=== PATIENT | female | born 1970 | race Caucasian/White ===

== ENCOUNTER 2024-05-25 10:31 | Inpatient (IN) | payer MEDICAID ==
[2024-05-25] VITALS (8 sets, daily range): BP systolic 105–135; BP diastolic 71–95; PULSE 116–137; RESP 20; TEMP 97.9; O2SAT 93
[~2024-05-25] VITALS: Ht 160 cm; Wt 69.0 kg
[~2024-05-25 10:31] MED LIST: GRIS500T7 PO
[2024-05-25 10:55] LABS: BASOPHILS % (AUTO) 0.3 % (0-1); EOSINOPHILS # (AUTO) 0.1 X10'3 (0-0.9); HEMATOCRIT 35.2 % (35.0-45.0); HEMOGLOBIN 11.7 g/dl (12.0-16.0); LYMPHOCYTES # (AUTO) 2.2 X10'3 (1.1-4.8); LYMPHOCYTES % (AUTO) 31.2 % (21-51); MEAN CORPUSCULAR HEMOGLOBIN 28.3 PG (27.0-31.0); MEAN CORPUSCULAR HGB CONC 33.2 g/dL (33.0-36.5); MEAN CORPUSCULAR VOLUME 85.3 FL (78-98); MEAN PLATELET VOLUME 7.5 FL (7.4-10.4); MONOCYTES # (AUTO) 0.8 X10'3 (0-0.9); MONOCYTES % (AUTO) 10.9 % (2-12); NEUTROPHILS % (AUTO) 55.6 % (42-75); PLATELET COUNT 381 X10'3 (140-440); RED BLOOD COUNT 4.12 X10'6 (4.20-5.60); RED CELL DISTRIBUTION WIDTH 14.4 % (11.5-14.5); WHITE BLOOD COUNT 7.2 X10'3 (4.5-11.0)
[2024-05-25] MEDS: diltiazem 5mg/ml 5ml inj. IV ONE ×2 (10:56→11:08)
[2024-05-25] MEDS ORDERED: diltiazem-D5W 125mg/125ml 125 ML IV SCH ×2 (11:05→11:07)
[2024-05-25 11:08] LABS: ALANINE AMINOTRANSFERASE 37 U/L (12-78); ALBUMIN 3.1 G/DL (3.4-5.0); ALBUMIN/GLOBULIN RATIO 0.7 (1.1-1.5); ALKALINE PHOSPHATASE 172 IU/L (46-116); ANION GAP 10 (8-16); ASPARTATE AMINO TRANSFERASE 22 U/L (10-37); BILIRUBIN,TOTAL 0.8 MG/DL (0.1-1.0); BLOOD UREA NITROGEN 12 MG/DL (7-18); BUN/CREATININE RATIO 20.3 (10.0-20.0); CALCIUM 9.2 MG/DL (8.5-10.1); CHLORIDE 105 MMOL/L (99-107); CREATININE 0.59 MG/DL (0.40-0.90); GLUCOSE 113 MG/DL (70-104); POTASSIUM 3.8 MMOL/L (3.5-5.1); SODIUM 139 MMOL/L (135-145); TOTAL CARBON DIOXIDE 23.9 MMOL/L (24-32); TOTAL PROTEIN 7.3 G/DL (6.4-8.2); eCRCL 89 ML/MIN; eGFR > 90 ML/MIN
[2024-05-25 11:17] LABS: PRO BRAIN NATRIURETIC PEPTIDE 3047 PG/ML (0-125)
[2024-05-25] MEDS: diltiazem-NS 100mg/100ml 100 ML IV SCH (11:24)
[2024-05-25] MEDS: LORazepam 2 mg/ml vial IV ONE (11:34)
[2024-05-25] MEDS: aspirin 325mg tablet PO ONE (11:35)
[2024-05-25 11:39] LABS: URINE AMPHETAMINE SCREEN POSITIVE (Neg); URINE BARBITUATE SCREEN NEGATIVE (Neg); URINE BENZODIAZEPINES SCREEN NEGATIVE (Neg); URINE CANNABINOID SCREEN NEGATIVE (Neg); URINE COCAINE SCREEN NEGATIVE (Neg); URINE METHADONE SCREEN NEGATIVE (Neg); URINE OPIATE SCREEN NEGATIVE (Neg); URINE PHENCYCLIDINE SCREEN NEGATIVE (Neg)
[2024-05-25 11:55] LABS: BILIRUBIN,URINE NEGATIVE (Neg); CLARITY,URINE CLEAR (Clear); COLOR,URINE YELLOW (Yellow); GLUCOSE, URINE NEGATIVE (Neg); KETONES,URINE NEGATIVE (Neg); LEUKOCYTE ESTERASE ,URINE NEGATIVE (Neg); NITRITES, URINE NEGATIVE (Neg); OCCULT BLOOD,URINE NEGATIVE (Neg); PROTEIN,URINE NEGATIVE (Neg); UROBILINOGEN,URINE 0.2 E.U/dL (0.2-1.0)
[2024-05-25 12:04] LABS: UA COLLECTION TYPE CLN CATCH MIDSTREAM
[2024-05-25 12:05] LABS: BILIRUBIN,DIRECT 0.3 MG/DL (0-0.3); ETHANOL < 10 MG/DL (<10); LIPASE 28 U/L (16-77); MAGNESIUM 1.8 MG/DL (1.5-2.4)
[2024-05-25 12:25] LABS: APTT 27 SECONDS (22-32)
[2024-05-25] MEDS: amiodarone 150mg/dext, iso-os 100 ML IV ONE (12:38)
[2024-05-25] MEDS: amiodarone/D5 360MG/200ML BAG 200 ML IV SCH (12:50)
[2024-05-25] MEDS: enoxaparin 100mg/ml syringe SUBCUT ONE (12:57)
[2024-05-25] MEDS ORDERED: magnesium 2GM in 50ml NS 50 ML IV ONE (13:00)
[2024-05-25] MEDS: morphine 4 MG/ML inj SYRINge IV ONE (13:05)
[2024-05-25] MEDS ORDERED: metoprolol succinate 25mg (24-HOUR) SR. Tablet PO SCH (15:10)
[2024-05-25] MEDS: HYDROmorphone 1 mg/ml syringe IV ONE (15:23)
[2024-05-25] MEDS: metoprolol succinate 25mg (24-HOUR) SR. Tablet PO ONE (15:25)
[2024-05-25] MEDS: metoprolol tartrate 50mg tablet PO ONE (15:30)
[2024-05-25] MEDS: magnesium 2GM in 50ml NS 50 ML IV ONE (16:00)
[2024-05-25] MEDS: metoclopramide 5 mg/ml inj IV ONE (17:04)
[2024-05-25] MEDS: metoprolol tartrate 1mg/ml inj IV ONE ×2 (17:04)
[2024-05-25] MEDS ORDERED: magnesium Cl slow-release 64mg tablet PO PRN (17:30)
[2024-05-25] MEDS ORDERED: magnesium 2GM in 50ml NS 50 ML IV PRN (17:30)
[2024-05-25] MEDS ORDERED: magnesium 4gm in 100ml NS 100 ML IV PRN (17:30)
[2024-05-25] MEDS ORDERED: potassium Cl 20 mEq SR tablet PO PRN ×2 (17:30)
[2024-05-25] MEDS ORDERED: potassium Cl 40MEQ/1/2NS 520ml 520 ML IV PRN (17:30)
[2024-05-25] MEDS ORDERED: magnesium hydroxide 30ml (MOM) UD suspension PO PRN (17:30)
[2024-05-25] MEDS ORDERED: mag hydrox/Alum hydrox/simeth 30ml oral suspension PO PRN (17:30)
[2024-05-25] MEDS ORDERED: ondansetron/PF 4mg/2ml inj IV PRN (17:30)
[2024-05-25] MEDS: PERFLUTREN PROTEIN-A MICROSPHR (Optison) 0.22 MG/ML 3ML VIAL IV ONE (17:41)
[2024-05-25] MEDS: normal saline 1000ml 1,000 ML IV SCH (17:41)
[2024-05-25] MEDS ORDERED: iohexol 350MG/ML 100ml bottle IV ONE (19:00)
[2024-05-25 19:04] LABS: THYROID STIMULATING HORMONE < 0.01 ulU/ml (0.34-4.50)
[2024-05-25] MEDS: K and/or MAG REPLACEMENT MC SCH (20:00)
[2024-05-25] MEDS: docusate sod 100mg capsule PO SCH (20:06)
[2024-05-25] MEDS ORDERED: NO HOME MEDS (20:43)
[2024-05-25] MEDS ORDERED: diltiazem-NS 100mg/100ml 100 ML IV SCH (21:11)
[2024-05-25] MEDS: furosemide 20 MG/2 ML vial IV SCH (21:29)
[2024-05-26] VITALS (20 sets, daily range): BP systolic 94–135; BP diastolic 60–95; PULSE 89–132; RESP 20–28; TEMP 97.4–99.3; O2SAT 92–98
[2024-05-26 04:11] LABS: BASOPHILS % (AUTO) 0.3 % (0-1); EOSINOPHILS # (AUTO) 0.2 X10'3 (0-0.9); EOSINOPHILS % (AUTO) 2.1 % (0-6); HEMOGLOBIN 11.3 g/dl (12.0-16.0); LYMPHOCYTES # (AUTO) 2.3 X10'3 (1.1-4.8); LYMPHOCYTES % (AUTO) 29.7 % (21-51); MEAN CORPUSCULAR HEMOGLOBIN 28.3 PG (27.0-31.0); MEAN CORPUSCULAR HGB CONC 33.1 g/dL (33.0-36.5); MEAN CORPUSCULAR VOLUME 85.4 FL (78-98); MEAN PLATELET VOLUME 7.8 FL (7.4-10.4); MONOCYTES # (AUTO) 0.7 X10'3 (0-0.9); MONOCYTES % (AUTO) 9.4 % (2-12); NEUTROPHILS # (AUTO) 4.5 X10'3 (1.8-7.7); NEUTROPHILS % (AUTO) 58.5 % (42-75); PLATELET COUNT 378 X10'3 (140-440); RED BLOOD COUNT 3.98 X10'6 (4.20-5.60); RED CELL DISTRIBUTION WIDTH 14.2 % (11.5-14.5); WHITE BLOOD COUNT 7.7 X10'3 (4.5-11.0)
[2024-05-26 04:33] LABS: ALBUMIN 2.7 G/DL (3.4-5.0); ANION GAP 10 (8-16); BLOOD UREA NITROGEN 18 MG/DL (7-18); BUN/CREATININE RATIO 27.7 (10.0-20.0); CALCIUM 9.2 MG/DL (8.5-10.1); CHLORIDE 104 MMOL/L (99-107); CHOL/HDL RATIO 2.6 (0.00-4.99); CHOLESTEROL 106 MG/DL (0-200); CREATININE 0.65 MG/DL (0.40-0.90); GLUCOSE 102 MG/DL (70-104); HDL CHOLESTEROL 41 MG/DL (35-60); LDL CHOLESTEROL 56 MG/DL (50-100); POTASSIUM 3.8 MMOL/L (3.5-5.1); SODIUM 138 MMOL/L (135-145); TRIGLYCERIDES 81 MG/DL (20-135); eCRCL 81 ML/MIN; eGFR > 90 ML/MIN
[2024-05-26] MEDS: enoxaparin 40mg/0.4ml syringe SUBCUT SCH (07:53)
[2024-05-26] MEDS: CefTRIAXone/D5W-Rocephin 1gm 50 ML IV SCH (08:00)
[2024-05-26] MEDS: ipratropium/albuterol 3ml nebule NEB SCH (08:15)
[2024-05-26] MEDS: metoprolol succinate 25mg (24-HOUR) SR. Tablet PO SCH (08:28)
[2024-05-26] MEDS: azithromycin/NS 500mg/250ml 250 ML IV SCH (09:16)
[2024-05-26 09:46] LABS: FREE T4 (FREE THYROXINE) 2.86 NG/DL (0.73-1.40)
[2024-05-26] MEDS: diltiazem CD 120mg capsule (once-daily) PO ONE (12:37)
[2024-05-26] MEDS ORDERED: apixaban 5mg tablet PO SCH (16:30)
[2024-05-26] MEDS: furosemide 20 MG/2 ML vial IV SCH (16:53)
[2024-05-26] MEDS: methylPREDNISolone sod succ/PF 40mg inj. IV SCH (17:22)
[2024-05-26] MEDS ORDERED: ipratropium 0.5 MG/2.5ML nebule IH PRN (17:30)
[2024-05-26] MEDS: apixaban 5mg tablet PO SCH (20:12)
[2024-05-27] VITALS (9 sets, daily range): BP systolic 95–123; BP diastolic 57–70; PULSE 88–127; RESP 16–26; TEMP 97.3–98.1; O2SAT 94–97
[2024-05-27 06:06] LABS: BASOPHILS % (AUTO) 0.1 % (0-1); EOSINOPHILS % (AUTO) 0 % (0-6); HEMATOCRIT 32.6 % (35.0-45.0); LYMPHOCYTES # (AUTO) 0.8 X10'3 (1.1-4.8); LYMPHOCYTES % (AUTO) 14.7 % (21-51); MEAN CORPUSCULAR HEMOGLOBIN 28.8 PG (27.0-31.0); MEAN CORPUSCULAR HGB CONC 33.8 g/dL (33.0-36.5); MEAN CORPUSCULAR VOLUME 85.3 FL (78-98); MEAN PLATELET VOLUME 7.7 FL (7.4-10.4); MONOCYTES # (AUTO) 0.1 X10'3 (0-0.9); MONOCYTES % (AUTO) 2.4 % (2-12); NEUTROPHILS # (AUTO) 4.6 X10'3 (1.8-7.7); NEUTROPHILS % (AUTO) 82.8 % (42-75); PLATELET COUNT 353 X10'3 (140-440); RED BLOOD COUNT 3.82 X10'6 (4.20-5.60); WHITE BLOOD COUNT 5.6 X10'3 (4.5-11.0)
[2024-05-27 06:12] LABS: ALBUMIN 2.8 G/DL (3.4-5.0); ANION GAP 9 (8-16); BLOOD UREA NITROGEN 16 MG/DL (7-18); BUN/CREATININE RATIO 26.7 (10.0-20.0); CALCIUM 9.3 MG/DL (8.5-10.1); CHLORIDE 104 MMOL/L (99-107); GLUCOSE 171 MG/DL (70-104); POTASSIUM 3.9 MMOL/L (3.5-5.1); SODIUM 139 MMOL/L (135-145); eCRCL 88 ML/MIN; eGFR > 90 ML/MIN
[2024-05-27] MEDS: acetaminophen 325mg tablet PO PRN (09:10)
[2024-05-27] MEDS: diltiazem SR 60mg capsule (twice daily) PO SCH ×2 (09:23→15:20)
[2024-05-27] MEDS: HYDROcodone/acetaminophen 5mg/325mg tablet PO PRN (09:23)
[2024-05-27] MEDS: lisinopril 2.5mg tablet PO SCH (15:20)
[2024-05-27] MEDS: methimazole 5mg tablet PO SCH (15:22)
[2024-05-28] VITALS (10 sets, daily range): BP systolic 104–120; BP diastolic 63–83; PULSE 63–118; RESP 15–18; TEMP 97–98.9; O2SAT 92–100
[2024-05-28 05:59] LABS: BASOPHILS # (AUTO) 0.1 X10'3 (0-0.2); BASOPHILS % (AUTO) 0.6 % (0-1); EOSINOPHILS % (AUTO) 0 % (0-6); HEMOGLOBIN 10.6 g/dl (12.0-16.0); LYMPHOCYTES # (AUTO) 2.8 X10'3 (1.1-4.8); LYMPHOCYTES % (AUTO) 23.3 % (21-51); MEAN CORPUSCULAR HEMOGLOBIN 27.4 PG (27.0-31.0); MEAN CORPUSCULAR HGB CONC 32.1 g/dL (33.0-36.5); MEAN CORPUSCULAR VOLUME 85.1 FL (78-98); MONOCYTES # (AUTO) 0.7 X10'3 (0-0.9); MONOCYTES % (AUTO) 6.3 % (2-12); NEUTROPHILS # (AUTO) 8.3 X10'3 (1.8-7.7); NEUTROPHILS % (AUTO) 69.8 % (42-75); PLATELET COUNT 382 X10'3 (140-440); RED BLOOD COUNT 3.88 X10'6 (4.20-5.60); WHITE BLOOD COUNT 11.8 X10'3 (4.5-11.0)
[2024-05-28 06:20] LABS: ALBUMIN 2.8 G/DL (3.4-5.0); ANION GAP 9 (8-16); BLOOD UREA NITROGEN 25 MG/DL (7-18); BUN/CREATININE RATIO 45.5 (10.0-20.0); CALCIUM 9.3 MG/DL (8.5-10.1); CHLORIDE 104 MMOL/L (99-107); CREATININE 0.55 MG/DL (0.40-0.90); GLUCOSE 120 MG/DL (70-104); POTASSIUM 3.8 MMOL/L (3.5-5.1); SODIUM 140 MMOL/L (135-145); TOTAL CARBON DIOXIDE 27.3 MMOL/L (24-32); eCRCL 96 ML/MIN; eGFR > 90 ML/MIN
[2024-05-28] MEDS: azithromycin 250mg tablet PO SCH (08:37)
[2024-05-28] MEDS: methimazole 5mg tablet PO SCH (08:40)
[2024-05-28] MEDS: temazepam 15mg capsule PO PRN (20:04)
[2024-05-29 02:00] VITALS: BP 106/63; PULSE 73; RESP 16; TEMP 97.3; O2SAT 96
[2024-05-29 05:45] LABS: BASOPHILS % (AUTO) 0.1 % (0-1); EOSINOPHILS % (AUTO) 0 % (0-6); HEMATOCRIT 33.5 % (35.0-45.0); HEMOGLOBIN 11.4 g/dl (12.0-16.0); LYMPHOCYTES # (AUTO) 1.9 X10'3 (1.1-4.8); MEAN CORPUSCULAR HGB CONC 34.1 g/dL (33.0-36.5); MEAN PLATELET VOLUME 7.9 FL (7.4-10.4); MONOCYTES # (AUTO) 0.6 X10'3 (0-0.9); MONOCYTES % (AUTO) 6.5 % (2-12); NEUTROPHILS # (AUTO) 7.3 X10'3 (1.8-7.7); NEUTROPHILS % (AUTO) 74.4 % (42-75); PLATELET COUNT 411 X10'3 (140-440); RED BLOOD COUNT 3.94 X10'6 (4.20-5.60); RED CELL DISTRIBUTION WIDTH 13.8 % (11.5-14.5); WHITE BLOOD COUNT 9.8 X10'3 (4.5-11.0)
[2024-05-29 06:18] LABS: ALBUMIN 2.8 G/DL (3.4-5.0); ANION GAP 8 (8-16); BLOOD UREA NITROGEN 23 MG/DL (7-18); BUN/CREATININE RATIO 37.7 (10.0-20.0); CALCIUM 9.4 MG/DL (8.5-10.1); CHLORIDE 104 MMOL/L (99-107); CREATININE 0.61 MG/DL (0.40-0.90); GLUCOSE 111 MG/DL (70-104); SODIUM 139 MMOL/L (135-145); TOTAL CARBON DIOXIDE 26.9 MMOL/L (24-32); eCRCL 86 ML/MIN; eGFR > 90 ML/MIN
[2024-05-29 07:00] VITALS: BP 124/77; PULSE 56; RESP 18; TEMP 98.2; O2SAT 97
[2024-05-29 11:00] VITALS: BP 120/93; PULSE 135; RESP 16; TEMP 98.5; O2SAT 96
[2024-05-29 12:51] VITALS: O2SAT 96
[2024-05-29 12:59] VITALS: RESP 16; O2SAT 96
[2024-05-29 13:24] VITALS: BP_SYST 122; PULSE 161
[2024-05-29] MEDS: metoprolol tartrate 1mg/ml inj IV ONE (13:24)
[2024-05-29] MEDS ORDERED: LISI2.5T14 PO (14:32)
[2024-05-29] MEDS ORDERED: AZI25OT PO (14:32)
[2024-05-29] MEDS ORDERED: METO-395 PO (14:32)
[2024-05-29] MEDS ORDERED: METH-604 PO (14:32)
[2024-05-29] MEDS ORDERED: PRED50TA PO (14:32)
[2024-05-29] MEDS ORDERED: CARSR60C PO (14:36)
[2024-05-29] MEDS ORDERED: APIX5TAB3 PO (15:22)
== END 2024-05-29 16:30 | disposition home or self-care (01) | DRG 194 ==
LOC: ER 10:31 → ED HOLD 17:38 → UNDOADMIN 17:45 → ED HOLD 17:45 → PCU 3S 21:00
PROVIDERS: ADMIT Internal Medicine; ATTEND Internal Medicine
PROC: B32T1ZZ Computerized Tomography (CT Scan) of Left Pulmonary Artery using Low Osmolar Contrast (ICD-10-PCS; principal; 2024-05-25)
PROC: B3201ZZ Computerized Tomography (CT Scan) of Thoracic Aorta using Low Osmolar Contrast (ICD-10-PCS; 2024-05-25)
PROC: B32S1ZZ Computerized Tomography (CT Scan) of Right Pulmonary Artery using Low Osmolar Contrast (ICD-10-PCS; 2024-05-25)
DX: I11.0 Hypertensive heart disease with heart failure (principal); J15.9 Unspecified bacterial pneumonia; E05.00 Thyrotoxicosis with diffuse goiter without thyrotoxic crisis or storm; I50.23 Acute on chronic systolic (congestive) heart failure; F12.90 Cannabis use, unspecified, uncomplicated; F15.90 Other stimulant use, unspecified, uncomplicated; R94.31 Abnormal electrocardiogram [ECG] [EKG]; F17.210 Nicotine dependence, cigarettes, uncomplicated; I48.91 Unspecified atrial fibrillation; Z98.51 Tubal ligation status; Z56.0 Unemployment, unspecified; Z88.2 Allergy status to sulfonamides
CPT/HCPCS: 36415; 71045; 71275; 73560; 80048; 80053; 80061; 80305; 80320; 81003; 82248; 83036; 83690; 83735; 83880; 84439; 84443; 84480; 84484; 85025; 85730; 87081; 93005; 93306; 94640; 94664; 94760; 99291; G0378; J0282; J0456; J0696; J1170; J1650; J1940; J2060; J2765; J2919; J3475; J3490; J7030; J7040; Q9967